=== PATIENT | female | born 1990 | race Caucasian/White ===

== ENCOUNTER 2017-08-25 06:40 | Emergency (ER) | payer OTHER, BC ==
[~2017-08-25] VITALS: Ht 170.2 cm; Wt 112.3 kg
[2017-08-25 07:31] LABS: HEMATOCRIT 39.6 % (36.0-46.0); HEMOGLOBIN 13.6 G/DL (11.9-15.5); MCH 31.6 PG (29.0-34.0); MCHC 34.3 G/DL (30.0-36.0); MCV 91.9 FL (83-99); PLATELET COUNT 271 K/uL (156-360); RBC DIS.WIDTH-CV 12.7 % (11.8-14.6); RBC DIS.WIDTH-SD 42.8 % (39-53); RED BLOOD COUNT 4.31 M/uL (3.80-5.20)
[2017-08-25 07:41] LABS: ALBUMIN 4.4 g/dL (3.2-4.8); CHLORIDE 105 mEq/L (99-109); SODIUM 139 mEq/L (136-147)
[2017-08-25 07:42] LABS: AMYLASE 31 IU/L (1-118)
[2017-08-25 07:43] LABS: GLUCOSE 161 mg/dL (70-99)
[2017-08-25 07:44] LABS: TOTAL PROTEIN 7.3 g/dL (6.4-8.3)
[2017-08-25 07:45] LABS: TOTAL BILIRUBIN 0.3 mg/dL (0.0-1.0)
[2017-08-25 07:46] LABS: SERUM ETHYL ALCOHOL < 10 mg/dL
[2017-08-25 07:47] LABS: ALKALINE PHOSPHATASE 86 IU/L (3-129); CREATININE 0.9 mg/dL (0.6-1.3); GFR ESTIMATE (CALCULATED) > 59 mL/min/
[2017-08-25 07:48] LABS: UREA NITROGEN (BUN) 12 mg/dL (9-23)
[2017-08-25 07:49] LABS: AST (GOT) 23 IU/L (2-34)
[2017-08-25 07:50] LABS: ALT (GPT) 34 IU/L (3-49)
[2017-08-25 07:58] LABS: QUANTITATIVE HCG < 4.0 MIU/ML
[2017-08-25] MEDS ORDERED: ULTRAM50 MG PO (09:36)
[2017-08-25 10:02] VITALS: BP 124/92
== END 2017-08-25 10:12 | disposition home or self-care (01) ==
LOC: EME 06:40
PROVIDERS: Emergency Medicine
DX: S40.011A Contusion of right shoulder, initial encounter (principal); V49.3XXA Car occupant (driver) (passenger) injured in unspecified nontraffic accident, initial encounter; Y92.410 Unspecified street and highway as the place of occurrence of the external cause
CPT/HCPCS: 71260; 73030; 73630; 74177; 80053; 82150; 84702; 85027; 99281; 99284; G0480; J3010; J7030